=== PATIENT | male | born 1990 | race African-American/Black ===

== ENCOUNTER 2024-03-08 10:58 | Emergency (ER) | payer MEDICAID ==
[~2024-03-08] VITALS: Ht 170.2 cm; Wt 72.6 kg
[~2024-03-08 10:58] MED LIST: LOPE2CAP MT; ONDA4TAB11 PO
[2024-03-08 11:10] VITALS: O2SAT 97
[2024-03-08] MEDS ORDERED: IBUP-2029 MT (11:58)
[2024-03-08 12:36] VITALS: BP 118/78; PULSE 56; RESP 19; TEMP 98.6
== END 2024-03-08 12:39 | disposition home or self-care (01) ==
LOC: ER 10:58
DX: B34.9 Viral infection, unspecified (principal); R05.9 Cough, unspecified; J34.89 Other specified disorders of nose and nasal sinuses; R52 Pain, unspecified
CPT/HCPCS: 71045; 99283

== ENCOUNTER 2024-09-10 13:49 | Emergency (ER) | payer MEDICAID ==
[~2024-09-10] VITALS: Ht 172.7 cm; Wt 66.0 kg
[~2024-09-10 13:49] MED LIST changes: +IBUP-2029 MT; +ONDA-239 PO; -ONDA4TAB11 PO
[2024-09-10 13:52] VITALS: BP 111/68; PULSE 77; RESP 15; TEMP 36.9; O2SAT 100; O2SAT 99
== END 2024-09-10 17:59 | disposition left against medical advice (07) ==
LOC: ER 13:49
DX: R51.9 Headache, unspecified (principal); Z53.21 Procedure and treatment not carried out due to patient leaving prior to being seen by health care provider

== ENCOUNTER 2024-09-24 14:47 | Emergency (ER) | payer MEDICAID ==
[~2024-09-24] VITALS: Ht 170.2 cm; Wt 63.6 kg
[2024-09-24 14:56] VITALS: O2SAT 98
[2024-09-24] MEDS ORDERED: AMOX1TAB16 MT (16:34)
[2024-09-24] MEDS ORDERED: CHLO473M2 MT (16:34)
[2024-09-24] MEDS ORDERED: IBUP-2030 MT (16:34)
[2024-09-24 16:44] VITALS: BP 126/85; PULSE 99; RESP 18; TEMP 36.9; O2SAT 98
== END 2024-09-24 16:45 | disposition home or self-care (01) ==
LOC: ER 14:47
DX: K08.89 Other specified disorders of teeth and supporting structures (principal)
CPT/HCPCS: 99281

== ENCOUNTER 2025-01-15 07:22 | Emergency (ER) | payer MEDICAID ==
[~2025-01-15] VITALS: Ht 170.2 cm; Wt 68.0 kg
[~2025-01-15 07:22] MED LIST changes: +AMOX1TAB16 MT; +CHLO473M2 MT; +IBUP-2030 MT
[2025-01-15 07:39] VITALS: TEMP 37; O2SAT 68
[2025-01-15] MEDS ORDERED: AMOX-494 MT (08:48)
[2025-01-15] MEDS: IBUPROFEN 600MG TABLET PO ONE (08:53)
[2025-01-15 08:57] VITALS: BP 129/81; PULSE 72; RESP 16; O2SAT 99
== END 2025-01-15 09:21 | disposition home or self-care (01) ==
LOC: ER 07:22
DX: J20.9 Acute bronchitis, unspecified (principal); Z79.899 Other long term (current) drug therapy
CPT/HCPCS: 87430; 99283